=== PATIENT | male | born 1945 | race Caucasian/White ===

== ENCOUNTER → 2017-05-24 | Outpatient (CLI) | payer OTHER | LOC: BMCIMAGING 11:03 | PROVIDERS: ATTEND Orthopaedic Surgery Hand Surgery | DX: M19.031 Primary osteoarthritis, right wrist (principal) ==

== ENCOUNTER 2017-07-06 11:15 | Inpatient (IN) | payer OTHER ==
--- NOTE | 2017-07-06 11:43 | CPEKG ---
Heart Rate: 73 RR Interval: 822 QRSD Interval: 106 QT Interval: 476 QTC Interval: 525 QRS Bob White: 77 T Wave Bob White: 14 EKG Severity - ABNORMAL ECG - EKG Impression: A-FLUTTER W/ PREDOM 4:1 AV BLOCK, A-RATE 294 EKG Impression: LOW VOLTAGE IN FRONTAL LEADS EKG Impression: NONSPECIFIC T ABNORMALITIES, INFERIOR LEADS EKG Impression: PROLONGED QT INTERVAL Electronically Signed By: Chele Hernandez 06-Jul-2017 13:02:17
[2017-07-06 12:32] LABS: % IMMATURE GRANULYOCYTES 0.3 % (0.0-1.1); ABSOLUTE IMMATURE GRANULOCYTES 0.02 10^3/uL (0.00-0.10); ADD DIFF? NO; ADD MORPH? NO; ADD SCAN? NO; ATYPICAL LYMPHOCYTE FLAG 20 (0-99); FRAGMENT RBC FLAG 0 (0-99); HEMATOCRIT 52.5 % (40.0-51.0); HEMOGLOBIN 18.4 g/dL (13.7-17.5); LEFT SHIFT FLG 0 (0-99); LIPEMIA HEMOLYSIS FLAG 90 (0-99); MEAN CELL HEMOGLOBIN 32.6 pg (27.9-34.1); MEAN CELL VOLUME 93.1 fL (81.5-99.8); MEAN PLATELET VOLUME 10.1 fL (8.7-11.7); PLATELET CLUMPS FLAG 20 (0-99); PLATELET COUNT 238 10^3/uL (150-400); RED BLOOD CELL COUNT 5.64 10^6/uL (4.40-6.38); RED CELL DISTRIBUTION WIDTH 12.9 % (11.5-15.2)
[2017-07-06 12:37] LABS: INR 0.94 (0.83-1.16); PROTIME(PATIENT) 12.8 SEC (12.0-15.0)
[2017-07-06 12:39] LABS: ANION GAP 13 mEq/L (8-16); CALCIUM 9.9 mg/dL (8.5-10.4); CARBON DIOXIDE 24 mEq/l (22-31); CHLORIDE 109 mEq/L (97-110); CREATININE 1.3 mg/dL (0.7-1.3); GLOMERULAR FILTRATION RATE 54; GLUCOSE 85 mg/dL (70-100); POTASSIUM 4.3 mEq/L (3.5-5.2); SODIUM 146 mEq/L (134-144)
[2017-07-06 12:50] LABS: TROPONIN I < 0.012 ng/mL (0.000-0.034)
[2017-07-06] MEDS ORDERED: NS 1,000 ML IV ONE (13:02)
--- NOTE | 2017-07-06 13:07 | EDPHY ---
H & P Stated Complaint: chest tightness for a few months intermittent nausea Time Seen by Provider: 07/06/17 12:53 HPI/ROS: CHIEF COMPLAINT: Chest pain with exertion HISTORY OF PRESENT ILLNESS: Patient is a 71-year-old man with a history only of hypothyroidism and high blood pressure who comes to the emergency department complaining of chest tightness and nausea symptoms when he exerts himself. He specially notices these when he is cross country skiing. He states that he did not notice than during the summer when he was chopping and holding would but has over the last month. He does not notice the rest are at home. He denies shortness of breath. He denies recent illness. No vomiting. No diarrhea. No fever. No trauma. He states that he has occasional palpitations when he is trying to fall asleep. REVIEW OF SYSTEMS: Constitutional: denies: chills, fever, recent illness, recent injury EENTM: denies: blurred vision, double vision, nose congestion Respiratory: denies: cough, shortness of breath Cardiac: See HPI Gastrointestinal/Abdominal: See HPI Genitourinary: denies: dysuria, frequency, hematuria, pain Musculoskeletal: denies: joint pain, muscle pain Skin: denies: lesions, rash, jaundice, bruising Neurological: denies: headache, numbness, paresthesia, tingling, dizziness, weakness Hematologic/Lymphatic: denies: blood clots, easy bleeding, easy bruising Immunologic/allergic: denies: HIV/AIDS, transplant EXAM: GENERAL: Well-appearing, well-nourished and in no acute distress. HEAD: Atraumatic, normocephalic. EYES: Pupils equal round and reactive to light, extraocular movements intact, sclera anicteric, conjunctiva are normal. ENT: TMs normal, nares patent, oropharynx clear without exudates. Moist mucous membranes. NECK: Normal range of motion, supple without lymphadenopathy or JVD. LUNGS: Breath sounds clear to auscultation bilaterally and equal. No wheezes rales or rhonchi. HEART: Occasionally irregular rhythm without murmurs, rubs or gallops. ABDOMEN: Soft, nontender, normoactive bowel sounds. No guarding, no rebound. No masses appreciated. BACK: No CVA tenderness, no spinal tenderness, step-offs or deformities EXTREMITIES: Normal range of motion, no pitting or edema. No clubbing or cyanosis. NEUROLOGICAL: Cranial nerves II through XII grossly intact. Normal speech, normal gait. 5/5 strength, normal movement in all extremities, normal sensation PSYCH: Normal mood, normal affect. SKIN: Warm, dry, normal turgor, no visible rashes or lesions. Source: Patient Exam Limitations: No limitations - Personal History Current Tetanus/Diphtheria Vaccine: Unsure - Medical/Surgical History Hx Asthma: No Hx Chronic Respiratory Disease: No Hx Diabetes: No Hx Cardiac Disease: No Hx Renal Disease: No Hx Cirrhosis: No Hx Alcoholism: No Hx HIV/AIDS: No Hx Splenectomy or Spleen Trauma: No Other PMH: denies - Family History Significant Family History: No pertinent family hx - Social History Smoking Status: Never smoked Alcohol Use: Sober Drug Use: None Constitutional: Initial Vital Signs Temperature (C) 36.6 C 07/06/17 11:24 Heart Rate 113 H 07/06/17 11:24 Respiratory Rate 20 07/06/17 11:24 Blood Pressure 118/84 H 07/06/17 11:24 O2 Sat (%) 96 07/06/17 11:24 O2 Delivery Mode Room Air Allergies/Adverse Reactions: No Known Allergies Allergy (Unverified 07/06/17 11:24) Home Medications: Medication Instructions Recorded Aspirin [Aspirin 81mg (*)] 81 mg PO DAILY18 07/06/17 Levothyroxine [Synthroid 100 mcg 100 mcg PO DAILY06 07/06/17 (*)] Multivitamins [Multivitamin (*)] 1 each PO DAILY 07/06/17 Polyvinyl Alcohol [Artificial 1 drop OP DAILY PRN 07/06/17 Tears] Simvastatin [Zocor] 40 mg PO DAILY18 07/06/17 Medical Decision Making - Diagnostics EKG Interpretation: An EKG obtained and was read and documented in trace view. Please see trace view for full reading and report. Atrial flutter with 4:1 block Imaging Results: Imaging Impressions Chest X-Ray 07/06/17 13:03 Impression: 1. Airways disease/emphysema. 2. No pneumonia. 3. Suspect chronic pulmonary arterial hypertension. ED Course/Re-evaluation: The patient has atrial flutter with a variable block. He will need echo likely prior to cardioversion versus ablation. He will need further evaluation because he is symptomatic. I discussed the case with the hospital service agreed to admit. Differential Diagnosis: Partial list of the Differential diagnosis considered include but were not limited to; atrial fibrillation, atrial flutter, and although unlikely based on the history and physical exam, I also considered acute coronary disease, PE, infection. - Data Points Laboratory Results: Laboratory Results 07/06/17 11:37 07/06/17 11:37 07/06/17 07/06/17 07/06/17 11:37 11:37 11:37 WBC RBC Hgb Hct MCV MCH MCHC RDW Plt Count MPV Neut % (Auto) Lymph % (Auto) [place] % (Auto) Eos % (Auto) Baso % (Auto) Nucleat RBC Rel Count Absolute Neuts (auto) Absolute Lymphs (auto) Absolute Monos (auto) Absolute Eos (auto) Absolute Basos (auto) Absolute Nucleated RBC Immature Gran % Immature Gran # PT Cancelled INR Cancelled APTT 25.9 SEC SEC (23.0-38.0) Turbidity Cancelled Sodium Cancelled Potassium Cancelled Chloride Cancelled Carbon Dioxide Cancelled Anion Gap Cancelled BUN Cancelled Creatinine Cancelled Estimated GFR Cancelled Glucose Cancelled Calcium Cancelled Total Bilirubin 1.0 mg/dL mg/dL (0.1-1.4) Conjugated Bilirubin 0.4 mg/dL mg/dL (0.0-0.5) Unconjugated Bilirubin 0.6 mg/dL mg/dL (0.0-1.1) AST 40 IU/L IU/L (17-59) ALT 49 IU/L IU/L (21-72) Alkaline Phosphatase 54 IU/L IU/L (38-126) Troponin I Cancelled NT-Pro-B Natriuret Pep 1040 pg/mL H pg/mL (0-125) Total Protein 7.6 g/dL g/dL (6.3-8.2) Albumin 4.4 g/dL g/dL (3.5-5.0) TSH 1.500 uIU/mL uIU/mL (0.465-4.680) Free T4 1.55 ng/dL ng/dL (0.59-2.19) Specimen Hemolysis Cancelled 07/06/17 07/06/17 07/06/17 11:37 11:37 11:37 WBC 6.39 10^3/uL 10^3/uL (3.80-9.50) RBC 5.64 10^6/uL 10^6/uL (4.40-6.38) Hgb 18.4 g/dL H g/dL (13.7-17.5) Hct 52.5 % H % (40.0-51.0) MCV 93.1 fL fL (81.5-99.8) MCH 32.6 pg pg (27.9-34.1) MCHC 35.0 g/dL g/dL (32.4-36.7) RDW 12.9 % % (11.5-15.2) Plt Count 238 10^3/uL 10^3/uL (150-400) MPV 10.1 fL fL (8.7-11.7) Neut % (Auto) 52.1 % % (39.3-74.2) Lymph % (Auto) 32.7 % % (15.0-45.0) [place] % (Auto) 11.7 % % (4.5-13.0) Eos % (Auto) 2.3 % % (0.6-7.6) Baso % (Auto) 0.9 % % (0.3-1.7) Nucleat RBC Rel Count 0.0 % % (0.0-0.2) Absolute Neuts (auto) 3.32 10^3/uL 10^3/uL (1.70-6.50) Absolute Lymphs (auto) 2.09 10^3/uL 10^3/uL (1.00-3.00) Absolute Monos (auto) 0.75 10^3/uL 10^3/uL (0.30-0.80) Absolute Eos (auto) 0.15 10^3/uL 10^3/uL (0.03-0.40) Absolute Basos (auto) 0.06 10^3/uL 10^3/uL (0.02-0.10) Absolute Nucleated RBC 0.00 10^3/uL 10^3/uL (0-0.01) Immature Gran % 0.3 % % (0.0-1.1) Immature Gran # 0.02 10^3/uL 10^3/uL (0.00-0.10) PT 12.8 SEC SEC (12.0-15.0) INR 0.94 (0.83-1.16) APTT Turbidity Sodium 146 mEq/L H mEq/L (134-144) Potassium 4.3 mEq/L mEq/L (3.5-5.2) Chloride 109 mEq/L mEq/L (97-110) Carbon Dioxide 24 mEq/l mEq/l (22-31) Anion Gap 13 mEq/L mEq/L (8-16) BUN 29 mg/dL H mg/dL (7-23) Creatinine 1.3 mg/dL mg/dL (0.7-1.3) Estimated GFR 54 Glucose 85 mg/dL mg/dL (70-100) Calcium 9.9 mg/dL mg/dL (8.5-10.4) Total Bilirubin Conjugated Bilirubin Unconjugated Bilirubin AST ALT Alkaline Phosphatase Troponin I < 0.012 ng/mL ng/mL (0.000-0.034) NT-Pro-B Natriuret Pep Total Protein Albumin TSH Free T4 Specimen Hemolysis Medications Given: Discontinued Medications Sodium Chloride (Ns) 1,000 mls @ 0 mls/hr IV EDNOW ONE; Wide Open PRN Reason: Protocol Stop: 07/06/17 13:03 Last Admin: 07/06/17 13:24 Dose: 1,000 mls Departure - Departure Disposition: [facility] Inpatient Acute Clinical Impression: Atrial flutter Qualifiers: Atrial flutter type: atypical Qualified Code(s): I48.4 - Atypical atrial flutter Condition: Fair
[2017-07-06 13:28] LABS: ALBUMIN 4.4 g/dL (3.5-5.0); BILIRUBIN-CONJUGATED 0.4 mg/dL (0.0-0.5); BILIRUBIN-UNCONJUGATED 0.6 mg/dL (0.0-1.1); TOTAL PROTEIN 7.6 g/dL (6.3-8.2)
[2017-07-06] MEDS ORDERED: ACETAMINOPHEN 325 MG TAB PO PRN (13:44)
[2017-07-06] MEDS ORDERED: ONDANSETRON DISINTEGRATING 4 MG TAB PO PRN (13:44)
[2017-07-06] MEDS ORDERED: ONDANSETRON 4 MG/2 ML VIAL IVP PRN (13:44)
--- NOTE | 2017-07-06 15:48 | GHP ---
[f rep st] HISTORY AND PHYSICAL DATE OF ADMISSION: 07/06/2017 CHIEF COMPLAINT: Racing heart, shortness of breath. HISTORY OF PRESENT ILLNESS: A 71-year-old male with past medical history of hypothyroidism, hyperlipidemia presenting with persistent racing heart rate and shortness of breath. He really noticed symptoms in April after he started skiing. He went to [employer] and felt very nauseated and winded at the end of the run. Had to lean over to catch his breath. He did a couple more runs and had similar symptoms. He now feels racing heart daily, even at rest. Especially, notices when un bed laying on his side. Will occasionally have chest tightness, but no overt pain and this is not associated with diaphoresis, radiation or numbness. Denies any dizziness or lightheadedness. No PND, orthopnea, or lower extremity edema. He had a negative exercise stress test probably 5-6 years ago by his primary care physician. No recent travel. He drinks 2 to 3 beers and couple cocktails nightly. No tobacco or drugs. REVIEW OF SYSTEMS: I completed a 10-point review of systems, negative except as noted in HPI. PAST MEDICAL HISTORY: Hypothyroid, hyperlipidemia. SURGERIES: None. FAMILY HISTORY: Maternal grandpa with an [place]. Paternal grandpa with prostate cancer. Maternal side lots of cancers. 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 Drinks 2 to 3 beers plus several cocktails daily. No tobacco. Quit smoking marijuana 15 years ago. ALLERGIES: No known drug allergies. PHYSICAL EXAMINATION: VITAL SIGNS: Temperature 37.0, blood pressure 139/81, heart rate 85 to 113, respirations 16, 95% on room air. GENERAL: Well- appearing, sitting up in bed HEENT: PERRLA. EOMI. Oropharynx clear. Garcia face, britany cheeks and nose. CARDIOVASCULAR: Heart rate is regular with an occasional extra beat. No murmurs, gallops, or rubs. No JVD or lower extremity edema. LUNGS: Clear. No crackles or wheezing. GI: Soft, nontender , nondistended. Positive bowel sounds. : No Peters. MUSCULOSKELETAL: 5/5 upper lower extremity strength. NEURO: 2 through 12 intact. PSYCH: Alert and oriented x3. LABORATORY DATA: WBC 6, hemoglobin 18, hematocrit 52, platelets 238. PTT is 25. Sodium 146, potassium 4.3, chloride 109, carbon dioxide 24, BUN 29, anion gap 13, creatinine is 1.3 up from 1.2. LFTs within normal. Troponin less than 0.012. BNP is pending. TSH 1.5, free T4 1.55. Chest x-ray personally reviewed by me. No effusion or edema. EKG is personally reviewed by me, atrial flutter, 4:[address] depression in leads aVL and 1. ASSESSMENT/PLAN: 1. Atrial flutter: likely source of symptoms. No ischemia on EKG, negative trop. TSH normal. No infectious symptoms. Alcohol may be playing a role. Monitor in the PCU on telemetry, echo pending. CHADS-VASc score is 1. I spoke with Dr. Peter who will see patient in the morning. Start BB, full-dose Lovenox (CrCl is okay), NPO for possible cardioversion. 2. Hypothyroidism. Resume Synthroid. 3. Hyperlipidemia. Simvastatin. 4. Mild TIESHA: mildly dry on exam. IVFs in ED. Repeat in morning. 5. Etoh use: drinks daily, counseled on cessation. No signs of w/d now. 6. Diet. Regular. 7. DVT prophylaxis. Lovenox. Disp: Patient warrants observation and admission given acute shortness of breath, atrial flutter requiring rate control, telemetry and further cardiac evaluation. /[id number]/MODL MTDD
[2017-07-06] MEDS ORDERED: NON-FORMULARY NEW DRUG (Polyvinyl Alcohol [Artificial Tears] 1 DROP) OP PRN (16:08)
[2017-07-06] MEDS ORDERED: TEARS/DEXTRAN 70/HYPROMELLOSE 15 ML OPHT.BTL EACHEYE PRN (16:10)
[2017-07-06] MEDS: ENOXAPARIN 80 MG/0.8 ML SYR SC SCH ×2 (16:37→20:52)
[2017-07-06] MEDS: METOPROLOL TARTRATE 50 MG TAB PO SCH ×2 (16:37→20:51)
[2017-07-06] MEDS ORDERED: ATORVASTATIN CALCIUM 20 MG TAB PO SCH (18:00)
[2017-07-06] MEDS ORDERED: NON-FORMULARY NEW DRUG (Simvastatin [Zocor] 40 MG) PO SCH (18:00)
[2017-07-07 04:25] LABS: ANION GAP 10 mEq/L (8-16); CALCIUM 8.8 mg/dL (8.5-10.4); CARBON DIOXIDE 24 mEq/l (22-31); CHLORIDE 110 mEq/L (97-110); CREATININE 1.2 mg/dL (0.7-1.3); GLOMERULAR FILTRATION RATE 59; GLUCOSE 89 mg/dL (70-100); POTASSIUM 4.5 mEq/L (3.5-5.2); SODIUM 144 mEq/L (134-144)
[2017-07-07] MEDS: LEVOTHYROXINE 100 MCG TAB PO SCH (05:45)
[2017-07-07] MEDS ORDERED: ATROPINE SULFATE 1 MG/10 ML SYR IVP ONE (08:55)
[2017-07-07] MEDS ORDERED: fentaNYL 100 MCG/2 ML INJ IVP ONE (08:55)
[2017-07-07] MEDS ORDERED: MIDAZOLAM 2 MG/2 ML VIAL IVP ONE (08:55)
[2017-07-07] MEDS ORDERED: BENZOCAINE UNIT DOSE SPRAY HURRICAINE MM ONE (08:55)
[2017-07-07] MEDS ORDERED: NS 500 ML IV ONE (08:55)
[2017-07-07] MEDS ORDERED: METOPROLOL TARTRATE 50 MG TAB PO SCH (09:00)
[2017-07-07] MEDS ORDERED: ENOXAPARIN 40 MG/0.4 ML SYR SC SCH (09:00)
[2017-07-07] MEDS: METOPROLOL TARTRATE 25 MG TAB PO SCH ×2 (09:41→21:39)
[2017-07-07] MEDS: ENOXAPARIN 80 MG/0.8 ML SYR SC SCH ×2 (09:41→21:30)
[2017-07-07] MEDS: MULTIVITAMINS 1 EACH TAB PO SCH (09:42)
--- NOTE | 2017-07-07 10:53 | CPEKG ---
Heart Rate: 94 RR Interval: 638 QRSD Interval: 104 QT Interval: 354 QTC Interval: 443 QRS Gregory: 94 T Wave Gregory: 57 EKG Severity - ABNORMAL ECG - EKG Impression: A-FLUTTER W/ VARIED AV BLOCK, A-RATE 283 EKG Impression: RIGHT AXIS DEVIATION EKG Impression: LOW VOLTAGE IN FRONTAL LEADS EKG Impression: BORDERLINE T ABNORMALITIES, ANT-LAT LEADS Electronically Signed By: Gregory Spangler 07-Jul-2017 20:26:45
[2017-07-07] MEDS ORDERED: ATROPINE SULFATE 1 MG/10 ML SYR ONE (11:55)
--- NOTE | 2017-07-07 12:36 | PDANEPAE ---
ANE History of Present Illness here for BARTOLOME/CV for AF ANE Past Medical History - Cardiovascular History Hx Hypertension: No Hx Arrhythmias: Yes Hx Chest Pain: No Hx Coronary Artery / Peripheral Vascular Disease: No Hx CHF / Valvular Disease: Yes Hx Palpitations: No - Pulmonary History Hx COPD: No Hx Asthma/Reactive Airway Disease: No Hx Recent Upper Respiratory Infection: No Hx Oxygen in Use at Home: No Hx Sleep Apnea: No - Endocrine History Hx Diabetes: No - Renal History Hx Renal Disorders: Yes - Liver History Hx Hepatic Disorders: No - Neurological & Psychiatric Hx Hx Neurological and Psychiatric Disorders: No - Chronic Pain History Chronic Pain: No ANE Review of Systems Review of systems is: negative Review of Systems: - Exercise capacity Exercise capacity: >=4 METS ANE Patient History - Allergies Allergies/Adverse Reactions: No Known Allergies Allergy (Unverified 07/06/17 11:24) - Home Medications Home Medications: Aspirin [Aspirin 81mg (*)] 81 mg PO DAILY18 07/06/17 [Last Taken 07/05/17 18:00] Levothyroxine [Synthroid 100 mcg (*)] 100 mcg PO DAILY06 07/06/17 [Last Taken 08:00] Multivitamins [Multivitamin (*)] 1 each PO DAILY 07/06/17 [Last Taken 07/02/17] Polyvinyl Alcohol [Artificial Tears] 1 drop OP DAILY PRN 07/06/17 [Last Taken ] Simvastatin [Zocor] 40 mg PO DAILY18 07/06/17 [Last Taken 07/05/17 18:00] - NPO status NPO Status: no food or drink >8 hours - Smoking Hx Smoking Status: Never smoked - Alcohol Use Alcohol Use: Heavy ANE Labs/Vital Signs - Labs Result Diagrams: 07/06/17 11:37 07/07/17 03:42 - Vital Signs Blood Pressure: 108/76 Heart Rate: 71 Respiratory Rate: 14 O2 Sat (%): 92 Height: 187.96 cm Weight: 85.1 kg ANE Physical Exam - Airway Neck exam: FROM Mallampati Score: Class 1 Mouth exam: normal dental/mouth exam - Pulmonary Pulmonary: no respiratory distress - Cardiovascular Cardiovascular: irregularly irregular - ASA Status ASA Status: II ANE Anesthesia Plan Anesthesia Plan: GA with mask
[2017-07-07] MEDS ORDERED: PROPOFOL 200 MG/20 ML VIAL ONE ×2 (12:40→12:41)
--- NOTE | 2017-07-07 13:04 | POSTANESTH ---
Post Anesthetic Evaluation Cardiovascular Status: Normal, Stable Respiratory Status: Normal, Stable Level of Consciousness/Mental Status: Can Participate in Eval Pain Control: Adequate, Prn Tx Ordered Nausea/Vomiting Control: Adequate, Prn Tx Ordered Complications Possibly Related to Anesthesia: None Noted
--- NOTE | 2017-07-07 13:04 | CPEKG ---
Heart Rate: 51 RR Interval: 1176 P-R Interval: 240 QRSD Interval: 100 QT Interval: 492 QTC Interval: 454 P Hollywood: 71 QRS Hollywood: 66 T Wave Hollywood: 40 EKG Severity - ABNORMAL ECG - EKG Impression: SINUS RHYTHM EKG Impression: FIRST DEGREE AV BLOCK EKG Impression: LOW VOLTAGE IN FRONTAL LEADS Electronically Signed By: Gregory Spangler 07-Jul-2017 20:26:40
--- NOTE | 2017-07-07 14:44 | ECHO ---
[email or web address] [address] [address] Main: [phone] Fax: Transthoracic Echocardiogram Name: BRIDGET BECK MR#: [id number] Study Date: 07/06/2017 Study Time: 02:55 PM Date of : 1945 Age: 71 year(s) Height: 188 cm (74 in.) Weight: 83.92 kg (185 lb.) BSA: 2.1 m2 Gender: Male Examination: Echo Indication: Atrial Flutter Image Quality: Contrast: Requested by: Porsche Blue BP: 139 mmHg/61 mmHg Heart Rate: Rhythm: Indication: Atrial Flutter Procedure Staff Crm Campaign Manager: Kellen Stallings Physician: Denis Peter Requesting Provider: Conclusions: Normal size left ventricle. The ejection fraction is estimated to be 45-50 %. Basal/mid inferoseptal wall hypokinetic . Normal size right ventricle. Trivial mitral valve regurgitation. The aortic valve is tri-leaflet. There is no aortic valve regurgitation. Trivial tricuspid valve regurgitation. Measurements: Chambers Valvular Assessment AV/MV Valvular Assessment TV/PV Normal Normal Normal Name Value Range Name Value Range Name Value Range Ao Shirley (MM): 3.8 cm (2.2 cm-3.7 AV Vmax: 0.86 m/s (1 m/s-1.7 TR Vmax: 2.17 mm/s ( - ) cm) m/s) TR PGmax: 19 mmHg ( - ) IVSd (2D): 1.0 cm (0.6 cm-1.1 AV maxP mmHg ( - ) syst. PAP: 24 mmHg ( - ) cm) MV E Vmax: 0.59 m/s ( - ) LVDd (2D): 5.4 cm (4.2 cm-5.9 MV A Vmax: 0.41 m/s ( - ) cm) MV E/A: 1.44 ( - ) LVDs (2D): 4.3 cm (2.1 cm-4 cm) LVPWd (2D): 0.6 cm (0.6 cm-1 cm) LVEF (MOD4): 48 % (>=55 %) EF Range: 45-50 % Continued Measurements: Chambers Valvular Assessment AV/MV Valvular Assessment TV/PV Name Value Name Value Name Value Patient: BRIDGET BECK Study Date: 07/06/2017 Page 1 of 2 02:55 PM LADs: 4.5 cm MV E/E' Septal: 8.60 CVP (est.): 5 mmHg LADs Lon.5 cm MV E/E' Lateral: 12.10 LA Area: 23.2 cm2 Additional Vessels Name Value Ao Ascendin.4 cm Findings: Left Ventricle: Normal size left ventricle. The ejection fraction is estimated to be 45-50 %. Regional wall motion abnormality noted. Basal/mid inferoseptal wall hypokinetic . Right Ventricle: Normal size right ventricle. Left Atrium: The left atrium is mildly dilated. Right Atrium: The right atrium is mildly dilated. Mitral Valve: The mitral valve is normal in appearance and function. Trivial mitral valve regurgitation. Aortic Valve: The aortic valve is normal in appearance and function. The aortic valve is tri-leaflet. There is no aortic valve regurgitation. Tricuspid Valve: The tricuspid valve is normal in appearance and function. Trivial tricuspid valve regurgitation. Pulmonic Valve: The pulmonic valve is normal in appearance and function. Mild pulmonic valve regurgitation is noted. Aorta: The aorta is normal. Pericardium: Trivial anterior pericardial effusion. (No Signature Object) Patient: BRIDGET BECK Study Date: 07/06/2017 Page 2 of 2 02:55 PM [id number]
[2017-07-07] MEDS ORDERED: REGADENOSON 0.4 MG/5 ML SYR IVP ONE (15:14)
--- NOTE | 2017-07-07 15:24 | HOSPPROG ---
Hospitalist Progress Note Assessment/Plan: #Atrial flutter: s/p successful cardioversion today. 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 No e/o overload #CAD: old infarcts on stress. Cath in AM. Check lipids, A1c. Increase statin to 40mg, ASA. Holding BB with bradycardia #Bradycardia: after procedure. 40-60, no symptoms. Hold BB, telemetry #Etoh abuse: counseled on cessation #HLD: statin #Hypothyroidism: Synthroid #DVT ppx: Lovenox #Dis: may DC today if stress okay Critical care time 50 min: bedside with patient, counseling patient on flutter, CAD, cath and discussing treatment plan with Dr. Peter Subjective: no chest pain Objective: Vital Signs Temp Pulse Resp BP Pulse Ox 36.4 C 53 L 12 94/52 L 93 07/07/17 14:36 07/07/17 14:36 07/07/17 14:36 07/07/17 14:36 07/07/17 14:36 Laboratory Results 07/07/17 03:42 07/06/17 07/07/17 07/08/17 05:59 05:59 05:59 Intake Total 1740 Balance 1740 PT 12.8 SEC (12.0-15.0) 07/06/17 11:37 INR 0.94 (0.83-1.16) 07/06/17 11:37 - Physical Exam Constitutional: no apparent distress Eyes: PERRL Ears, Nose, Mouth, Throat: moist mucous membranes Cardiovascular: regular rate and rhythym, no murmur, rub, or gallop, No edema Respiratory: no respiratory distress, no rales or rhonchi Gastrointestinal: normoactive bowel sounds Genitourinary: no bladder fullness Skin: warm Musculoskeletal: full muscle strength Neurologic: AAOx3, CN II-XII Intact Psychiatric: interacting appropriately ICD10 Worksheet Patient Problems: Problems Problem Status Onset Atrial flutter Acute
--- NOTE | 2017-07-07 16:45 | CPIP ---
[f rep st] INVASIVE CARDIAC PROCEDURE PROCEDURES PERFORMED: Transesophageal echocardiogram and cardioversion. INDICATION: Atrial flutter. CONSENT: The patient gave informed consent for BARTOLOME and cardioversion. I went over with him the opti ons, which would include ongoing medical therapy without having his procedures and he understands the risk of perforation, infection, possible requirement for surgery with transesophageal echocardiogram , very remote risk of , the risks also of cardioversion including risk of and stroke, and the risk of stroke even in the face of what appears to be a normal transesophageal echocardiogram. Twyla benitez wanted to proceed and proceed today. Again, I gave him all the options available to him, which the re are many. I talked to him about this multiple times before we did the procedure. TRANSESOPHAGEAL ECHOCARDIOGRAM: He tolerated the procedure very well and there was no sign of decrea sed velocity or clot in the left atrium. There was smoke present. CARDIOVERSION: The patient was cardioverted with 200 watt seconds from atrial flutter to normal sinu s rhythm. He needs to follow up with our electrophysiology service and I will give him Dr. Almaraz's number to get ongoing care and followup for his flutter. He will also require full anticoagulation, which he was on at the time since he has come in the hospital, and that was started as soon as he got here with hi s flutter and he is going to need full anticoagulation. I have talked to the hospitalist and he is kizzy rivera to be cared for with Aj. I will follow him in clinic unless his further studies indicate he needs further cardiovascular evalu ation at this time. He is now in normal sinus rhythm. He had absolutely no complications. I have t alked to multiple times since the procedure and he is doing well right this minute. /[id number]/MODL
--- NOTE | 2017-07-07 17:09 | GCON ---
[f rep st] CONSULTATION HISTORY OF PRESENT ILLNESS: The patient has been having forceful heartbeats that he has been paying attention to. The heartbeats have been fast. He does not have near-syncope or syncope. He has been having these fast heartbeats for a long, long time. Over 6 months. He will notice it most often when he is resting, when he lies down to read a book, or when he gets up . He may notice that his heart is going fast. He does not notice any problem while he is working. He notices no problem when he is skiing. What he has noticed as he is skiing and when he is working is that he is more short of breath than he usually is. When he would go down a run. He would maybe get a little nauseated and feel winded and have to stop. Just last year he was able to go down the s baldev runs without any problems. He notices the extra shortness of breath at other times too with any kind of exertion. That is the issue that brought him into the hospital. He also has been having some chest tightness in the center of his chest when he exerts himself. He d oes not have orthopnea, PND, or pleuritic chest pain, fever, chills, cough. No jaw pain, arm pain. No sputum production, hemoptysis. He has no history of asthma. He is a very active gentleman and is confused about what is going on with this. It is a marked difference for him He has cardiac risk factors positive for hyperlipidemia. Cardiac risk factors are negative for hypertension, diabetes mellitus, hyperuricemia, smoking history , and family history of premature coronary disease. Cardiac risk factors are negative for known param nary artery disease. REVIEW OF SYSTEMS: ENDOCRINE: He has a history of hypothyroidism. NEURO: He has not had focal mik rologic problems. No headache, stiff neck, sore throat, dysphagia, or hoarseness. No trauma to the head neck or chest. : No dysuria or frequency. CARDIAC: He has not had a cardiac evaluation for years. ALLERGIES: None. FAMILY HISTORY: He has no family history of premature coronary disease. He has no family history of unexplained sudden at a young age. SOCIAL HISTORY: He was born in [place], [place]. He has 2 brothers and they moved around a lot. His father was in the . He went to high school in [place] and in the last year of his high s chool he was at [employer] in [place] which he enjoyed a great deal. He does not smoke. He does drink a fair amount of alcohol. He is drinking 3-4 cocktails a day and he will have a beer as w ell occasionally. 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 He martins s not use marijuana or any other drugs. He exercises. Over the years, he has been in and out of restaurant and construction work. He has been doing that [employer] work since he went to as an undergraduate. He is a bachelor. Lives with a friend and a broth er and his brother's . They share a house. PHYSICAL EXAMINATION: VITAL SIGNS: Blood pressure is 125/75. Respiratory rate is 15. Heart rate i s 110. He is afebrile. His O2 saturation is normal. HEENT: Pupils equal and reactive. Mucous membranes and mouth moist. NECK: Supple. CARDIOVASCULAR: S1, S2. Soft systolic murmur lef t sternal border. No diastolic murmur. No S3, S4. No rubs. His pulse is irregular. PULMONARY: R honchi. No rales, wheezing, or dullness. CVA: No tenderness. ABDOMEN: Soft, nontender, without m asses. EXTREMITIES: No edema, inflammation, or ulceration. NEUROLOGIC: Grossly normal. PSYCHIATR IC: No obvious anxiety or depression. LABORATORY DATA: The patient is in atrial flutter. Sodium 146, potassium 4.3, chloride 109, CO2 of 24, BUN 29, creatinine 1.3. He has an echocardiographic study that does look like it showed some inferior hypokinesis. He also h as an ejection fraction estimated at 45% to 50%. No pulmonary hypertension detected on that study. Chest x-ray showed airway disease and emphysema. No pneumonia. Suspect chronic pulmonary arterial h ypertension. ASSESSMENT AND PLAN: 1. Palpitations. 2. Atrial flutter. 3. Dyspnea on exertion. 4. Chest tightness. 5. He has longstanding hyperlipidemia that is being treated by his primary care doctor and he will c ontinue to watch carefully. He is certainly at risk for coronary artery disease. He has agreed to go ahead with a BARTOLOME and cardio version and he is fully anticoagulated. He is going to have that done today. He understands the ris k of stroke, which is real, when you are doing a cardioversion, even when the BARTOLOME is normal or appear s to be normal. He is willing to proceed and wants to get that done. He needs to have a nuclear str ess test done as an imaging study to see whether or not he has coronary artery disease. He clearly has a tightness in his chest with certain exertions. It goes away with rest. Certainly, it could be angina. He has an abnormal echocardiogram that shows possible wall motion, so we have to look for coronary disease. I offered to do coronary angiography on him and I recommended that as th e way to go. He is getting chest tightness with exertion and goes away with rest. It comes on with stress, goes away with rest. I think, given his age and his abnormal echo we could easily proceed to coronary angiography first an d I think it would be safer in case he has a precipitously dangerous cardiac condition. I think that stressing him could put him into jeopardy. However, he is not interested in this approach. He real ly wants a noninvasive approach and I will do it the way he would like to do it, which is we will do the noninvasive approach. He understands the choices and he understands the risks that go along with the stress test like this. Over time, he will be watched carefully and we will see how he progresses. Thank you very much for asking us to see this complex gentleman. I have talked to the hospitalist out him. /[id number]/MODL
[2017-07-07] MEDS: ATORVASTATIN CALCIUM 20 MG TAB PO SCH (17:10)
--- NOTE | 2017-07-07 17:47 | PDMN ---
Medical Necessity Medical necessity: C/M review: est. > 2 MN LOS for eval and TX of acute atrial flutter, bradycardia status post 07/07/2017 cardioversion requiring ongoing cardiac monitoring, hold oral beta rigoberto, comorbid cardiomyopathy, CAD, alcohol abuse, hyperlipidemia, hypothyroidism per 07/07/2017 Hospitalist progress note.
[2017-07-07 17:48] LABS: HEMOGLOBIN A1C 5.5 % (4.0-6.0)
[2017-07-08 04:29] LABS: ANION GAP 11 mEq/L (8-16); CALCIUM 8.7 mg/dL (8.5-10.4); CARBON DIOXIDE 23 mEq/l (22-31); CHLORIDE 110 mEq/L (97-110); CHOLESTEROL 148 mg/dL (140-220); CREATININE 1.2 mg/dL (0.7-1.3); GLOMERULAR FILTRATION RATE 59; GLUCOSE 83 mg/dL (70-100); HIGH DENSITY LIPOPROTEIN 40 mg/dL (40-65); LDL/HDL RATIO 2.25 RATIO (1.00-3.64); LOW DENSITY LIPOPROTEIN 90 mg/dL (80-100); NON-HIGH DENSITY LIPOPROTEIN 108 mg/dL (90-129); POTASSIUM 4.6 mEq/L (3.5-5.2); SODIUM 144 mEq/L (134-144); TRIGLYCERIDE 93 mg/dL (40-150); VERY LOW DENSITY LIPOPROTEINS 18 mg/dL (8-25)
[2017-07-08] MEDS: LEVOTHYROXINE 100 MCG TAB PO SCH (06:06)
--- NOTE | 2017-07-08 09:13 | CPR ---
[f rep st] NONINVASIVE CARDIAC PROCEDURE REPORT DATE OF PROCEDURE: 07/07/2017 PROCEDURE: Lexiscan nuclear stress test. REASON FOR TEST: He was in atrial flutter, had a cardioversion and had chest pain on admission. RESTING: Resting EKG shows a sinus rhythm with a first-degree AV block. No ischemic changes noted. Resting heart rate on EKG 62, resting blood pressure 110/68, oxygen saturation 95%. He is asymptoma tic. STRESS PORTION: Lexiscan was injected rapidly, followed by saline flush. Cardiolite was then inject ed, followed by saline flush. He did feel some stomach upset after injection and flushing. Peak blo od pressure 112/60, peak heart rate 87. Oxygen saturation 95%. No EKG changes with administration o f Lexiscan. RECOVERY: He spontaneously recovered. Caffeine was given and his symptoms subsided. Recovery blood pressure 110/60, recovery heart rate 75, oxygen saturation 96%. EKG remained stable. At this time, he currently is stable for nuclear imaging. /[id number]/MODL
[2017-07-08] MEDS ORDERED: LIDOCAINE 1% 300 MG/30 ML SDV ONE (11:34)
[2017-07-08] MEDS ORDERED: fentaNYL 100 MCG/2 ML INJ ONE (11:34)
[2017-07-08] MEDS ORDERED: MIDAZOLAM 2 MG/2 ML VIAL ONE (11:34)
[2017-07-08] MEDS ORDERED: IOPAMIDOL (ISOVUE-370) 150 ML BTL IV ONE (11:35)
--- NOTE | 2017-07-08 12:00 | PDPROPOC ---
Sedation Plan of Care ASA Classification: ASA 1 Planned drugs: fentanyl, midazolam Mallampati Score: Class 2 Mallampati Reference Image: Patient passed 3-3-2 rule?: Yes
[2017-07-08] MEDS: METOPROLOL TARTRATE 25 MG TAB PO SCH (12:14)
[2017-07-08] MEDS: MULTIVITAMINS 1 EACH TAB PO SCH (12:16)
[2017-07-08] MEDS ORDERED: ONDANSETRON 4 MG/2 ML VIAL IVP PRN (13:07)
[2017-07-08] MEDS ORDERED: OXYCODONE/APAP 5/325 TAB PO PRN (13:07)
[2017-07-08] MEDS ORDERED: ATROPINE SULFATE 1 MG/10 ML SYR IVP PRN (13:07)
[2017-07-08] MEDS ORDERED: HYDROCODONE/APAP 5/325 TAB PO PRN (13:07)
[2017-07-08] MEDS ORDERED: NITROGLYCERIN 0.4 MG BTL SL PRN (13:07)
[2017-07-08] MEDS ORDERED: NS 1,000 ML IV SCH (13:30)
--- NOTE | 2017-07-08 13:53 | CPIP ---
[f rep st] INVASIVE CARDIAC PROCEDURE INDICATIONS FOR PROCEDURE: The patient has chest tightness with exertion, marked new shortness of br eath with minimal exertion and he is also having a history of many years of hyperlipidemia. He has a nuclear stress test which shows multiple areas of infarction. He has a decreased ejection fraction. He does not have symptomatic heart failure at rest, but with e xertion he has shortness of breath. It is not clear if some of that shortness of breath is ischemic, but shortness of breath is cardiomyo pathic and we will proceed with coronary angiography. He understands the risks and the options and wanted to proceed. FINDINGS: Angiography: Left main coronary artery normal. Circumflex coronary artery normal. Right coronary artery normal. Right coronary dominant. Left ventriculogram: Left ventricle was enlarged. Decreased LV global systolic function with ejection fraction of 35% range. Left ventricular end-diastolic pressure 14 mmHg. Left and left heart catheterization: LVEDP was 16. There is no aortic stenosis. COMPLICATIONS: None CONDITION AT END OF STUDY: Excellent. CONCLUSION: The patient has a dilated cardiomyopathy. It clearly could be related to alcohol consum ption, which he does on a regular basis in a significant amount and I have already talked to him abou t trying to curtail that and now we will work very hard on getting him not drink at all for 6 months to see if that improves and takes care of his problem. He will be started on a different beta rigoberto and an ZAY inhibitor today. He will get IV fluids post catheterization. We may add a diuretic on Monday. His heart rate at times can be low and his blood pressure can be low so we are going to be careful ab out titrating his medications. He will be followed long-term to see if he needs an ICD. He is having first-degree heart block as well as second-degree heart block, most of which looks Like Wenckebach, but there are times when it does not look like the OK interval is prolonging before the dropped beat, so we are going to monitor this while he is in the hospital. We will review his ca se with the electrophysiology service on Monday. We will watch carefully to see if he gets advanced block at this point. His prognosis is guarded, All his questions have been answered. Complications none. The results discussed with the hospitalist service. /[id number]/MODL
--- NOTE | 2017-07-08 15:14 | HOSPPROG ---
Hospitalist Progress Note Assessment/Plan: #Atrial flutter: s/p successful cardioversion: 07/07. Lovenox hrlei, Rheaqura at DC. Coreg #Cardiomyopathy: confirmed on cath today with EF 35%. Start Coreg/Vasotech today. Lasix possibly tomorrow. No e/o overload -suspect Etoh as etiology. I have had several discussions with him on cessation. #CAD: old infarcts on stress. Clean coronaries on cath. Statin, ASA, Coreg. Lipids and A1c at goal #First degree block/Wenckebach: no sxs. Cont telemetry. Dr. Peter will have EP evaluate #Etoh abuse: counseled on cessation #HLD: statin #Hypothyroidism: Synthroid #DVT ppx: Lovenox #Disp: warrants inpatient admission with CDM, heart block. Requires telemetry, med titration and EP evaluation Subjective: no dizziness or lightheadedness Objective: Vital Signs Temp Pulse Resp BP Pulse Ox 36.5 C 48 L 18 95/56 L 95 07/08/17 12:00 07/08/17 12:14 07/08/17 12:00 07/08/17 12:14 07/08/17 12:00 Laboratory Results 07/08/17 03:24 07/07/17 07/08/17 07/09/17 05:59 05:59 05:59 Intake Total 650 Balance 650 PT 12.8 SEC (12.0-15.0) 07/06/17 11:37 INR 0.94 (0.83-1.16) 07/06/17 11:37 - Physical Exam Constitutional: no apparent distress Eyes: PERRL Ears, Nose, Mouth, Throat: moist mucous membranes Cardiovascular: bradycardia, No edema Respiratory: no respiratory distress, No no rales or rhonchi Gastrointestinal: normoactive bowel sounds, soft, non-tender abdomen Genitourinary: no bladder fullness Skin: warm Musculoskeletal: full muscle strength Neurologic: CN II-XII Intact ICD10 Worksheet Patient Problems: Problems Problem Status Onset Atrial flutter Acute
[2017-07-08] MEDS: CARVEDILOL 3.125 MG TAB PO SCH (18:52)
[2017-07-08] MEDS: ATORVASTATIN CALCIUM 20 MG TAB PO SCH (18:55)
[2017-07-08] MEDS: ENOXAPARIN 80 MG/0.8 ML SYR SC SCH (21:58)
[2017-07-08] MEDS: ENALAPRIL MALEATE 2.5 MG TAB PO SCH (22:54)
[2017-07-09 04:22] LABS: ANION GAP 7 mEq/L (8-16); CALCIUM 8.8 mg/dL (8.5-10.4); CARBON DIOXIDE 26 mEq/l (22-31); CHLORIDE 108 mEq/L (97-110); CREATININE 1.2 mg/dL (0.7-1.3); GLOMERULAR FILTRATION RATE 59; GLUCOSE 85 mg/dL (70-100); POTASSIUM 4.5 mEq/L (3.5-5.2); SODIUM 141 mEq/L (134-144)
[2017-07-09] MEDS: LEVOTHYROXINE 100 MCG TAB PO SCH (07:00)
[2017-07-09] MEDS: MULTIVITAMINS 1 EACH TAB PO SCH (08:08)
[2017-07-09] MEDS: CARVEDILOL 3.125 MG TAB PO SCH ×2 (08:08→18:30)
[2017-07-09] MEDS: ENOXAPARIN 80 MG/0.8 ML SYR SC SCH (08:08)
--- NOTE | 2017-07-09 08:47 | HOSPPROG ---
Hospitalist Progress Note Assessment/Plan: #Atrial flutter: s/p successful cardioversion: 07/07. Coreg, Aj #Cardiomyopathy: confirmed on cath, EF 35%. -Monitor overnight on BB, Vasotech. No e/o overload, so Lasix not warranted -suspect Etoh as etiology. I have had several discussions with him on cessation. #CAD: old infarcts on stress. Clean coronaries on cath. Statin, ASA, Coreg. Lipids and A1c at goal #First degree block/Wenckebach: no sxs. Cont telemetry. No e/o pauses of telemetry. No need for pacemaker #Etoh abuse: counseled on cessation #HLD: statin #Hypothyroidism: Synthroid #DVT ppx: Lovenox #Disp: warrants inpatient admission with CDM, heart block. Requires telemetry, med titration. Can DC tomorrow if tolerates medications Subjective: no SOB or dizziness Objective: Vital Signs Temp Pulse Resp BP Pulse Ox 36.6 C 63 16 96/65 L 95 07/09/17 04:00 07/09/17 04:00 07/09/17 04:00 07/09/17 04:00 07/09/17 04:00 Laboratory Results 07/09/17 03:36 07/08/17 07/09/17 07/10/17 05:59 05:59 05:59 Intake Total 650 1500 Balance 650 1500 PT 12.8 SEC (12.0-15.0) 07/06/17 11:37 INR 0.94 (0.83-1.16) 07/06/17 11:37 - Physical Exam Constitutional: no apparent distress Eyes: PERRL Ears, Nose, Mouth, Throat: moist mucous membranes, hearing normal Cardiovascular: bradycardia, No edema Respiratory: no respiratory distress Gastrointestinal: normoactive bowel sounds, soft, non-tender abdomen Genitourinary: no bladder fullness Skin: warm Musculoskeletal: full muscle strength Neurologic: AAOx3 Psychiatric: interacting appropriately ICD10 Worksheet Patient Problems: Problems Problem Status Onset Atrial flutter Acute
[2017-07-09] MEDS: ENALAPRIL MALEATE 2.5 MG TAB PO SCH (10:52)
--- NOTE | 2017-07-09 11:09 | SOAPPROG ---
SABINE Progress Note Assessment/Plan: Assessment: Plan: 07/09/17 11:09 1. Cardiomyopathy 2. Atrial flutter 3. Dyslipidemia We are going to start him on his beta-blockers and his Erik inhibitor. He has tolerated them so far. He had some 2-1 heart block and will watch that while he is here for another day to see if it looks more dangerous than Wedavidkebach. He also has first-degree heart block and some PVCs. Did not have any long pauses last night on the beta-blockers. I have reviewed with him not drinking alcohol and I think he will not do that. And I will see him in clinic in 10 days after discharge. I there is no indication for diuretic right now because he is by no means fluid overloaded. His blood pressure is already low his heart rate is low so I do not want add a diuretic to this I think is more border get him on his Erik inhibitor and beta- rigoberto. Having clinic I will see him and see if we can up titrate his medicines bed that will go from there. I am hoping that stopping alcohol this cardiomyopathy my chest is clear. All his questions have been answered I have reviewed him with the hospitalist. Our service see him tomorrow and that there is no reason to think he needs pacemaker and he is tolerating medications he will be discharged. Subjective: Intermittent with Jules questions a December he feels well today. He is eager to get out of the hospital He has no chest pain jaw pain arm pain He has no shortness of breath No palpitations or lightheadedness. He is taking his medications. His blood pressure is low on the low dose of Coreg at very low dose of vaso tech. But he did take that his headache last night is okay. He has not had a diuretic nor does he need 1. Objective: Vital Signs Temp Pulse Resp BP Pulse Ox 36.6 C 55 L 18 92/53 L 93 07/09/17 08:00 07/09/17 08:00 07/09/17 08:00 07/09/17 08:00 07/09/17 08:00 Laboratory Results 07/09/17 03:36 07/08/17 07/09/17 07/10/17 05:59 05:59 05:59 Intake Total 650 1500 Balance 650 1500 PT 12.8 SEC (12.0-15.0) 07/06/17 11:37 INR 0.94 (0.83-1.16) 07/06/17 11:37 Selected Entries 07/08/17 07/09/17 07/09/17 20:53 00:00 00:20 Heart Rate 58 L 57 L Blood Pressure 105/68 100/60 Cardiac Rhythm Sinus Bradycardia 1st Degree Heart Block 07/09/17 07/09/17 04:00 08:00 Heart Rate 63 55 L Blood Pressure 96/65 L 92/53 L Cardiac Rhythm Laboratory Tests 07/06/17 07/06/17 07/08/17 11:37 11:37 03:24 WBC 6.39 Hct 52.5 H Plt Count 238 Sodium Potassium Chloride Carbon Dioxide Anion Gap BUN Creatinine Estimated GFR Glucose Triglycerides 93 Cholesterol 148 Cholesterol Risk Factr 0.6 LDL Cholesterol, Calc 90 LDL Risk Factor 0.8 VLDL Cholesterol 18 Non-HDL Cholesterol 108 HDL Cholesterol 40 TSH 1.500 Free T4 1.55 07/09/17 03:36 WBC Hct Plt Count Sodium 141 Potassium 4.5 Chloride 108 Carbon Dioxide 26 Anion Gap 7 L BUN 30 H Creatinine 1.2 Estimated GFR 59 Glucose 85 Triglycerides Cholesterol Cholesterol Risk Factr LDL Cholesterol, Calc LDL Risk Factor VLDL Cholesterol Non-HDL Cholesterol HDL Cholesterol TSH Free T4 Physical Exam - Physical Exam General Appearance: no apparent distress Neck: non-tender, supple Respiratory: rhonchi Cardiac/Chest: regular rate, rhythm, systolic murmur, No edema, No tachycardia Abdomen: non-tender, soft, No organomegaly Skin: warm/dry, No pallor Neuro/Psych: alert, normal mood/affect ICD10 Worksheet Patient Problems: Problems Problem Status Onset Atrial flutter Acute
--- NOTE | 2017-07-09 16:04 | ASMTCMCOM ---
CM Note CM Note Notes: 71 year old male admitted for SOB, Aflutter. Has a hx of Hypothyroid, HLD, ETOH. Had a cardiac work-up. Patient may need an ICD. Encouraged to decrease ETOH consumption. May not have discharge needs. Date Signed: 07/09/2017 04:04 PM Electronically Signed By:Johnna Virgen LCSW
[2017-07-09] MEDS: ATORVASTATIN CALCIUM 20 MG TAB PO SCH (18:31)
[2017-07-09] MEDS ORDERED: ENALAPRIL MALEATE 2.5 MG TAB PO SCH (21:00)
[2017-07-09] MEDS: APIXABAN 5 MG TAB PO SCH (21:35)
[2017-07-10 04:21] LABS: ANION GAP 9 mEq/L (8-16); CARBON DIOXIDE 23 mEq/l (22-31); CHLORIDE 109 mEq/L (97-110); CREATININE 1.1 mg/dL (0.7-1.3); GLOMERULAR FILTRATION RATE > 60; GLUCOSE 93 mg/dL (70-100); POTASSIUM 4.4 mEq/L (3.5-5.2); SODIUM 141 mEq/L (134-144)
[2017-07-10] MEDS: MULTIVITAMINS 1 EACH TAB PO SCH (08:54)
[2017-07-10] MEDS: LEVOTHYROXINE 100 MCG TAB PO SCH (08:54)
[2017-07-10] MEDS: APIXABAN 5 MG TAB PO SCH (08:55)
[2017-07-10 10:54] VITALS: BP 90/53; PULSE 50; RESP 15; TEMP 97.6; O2SAT 99
--- NOTE | 2017-07-10 11:07 | PDCARPN ---
Cardiology Progress Note Chief Complaint: Chest tightness with nausea Assessment/Plan: Assessment: Patient is a 71 y/o male with history of hypothyroidism and HTN, who presented to [facility] ER with complaints of chest pains/pressure and nausea. Work up in the ER with notable arrhythmia (atrial flutter) with unknown duration. Cardiac biomarker was not elevated, but BNP was. Given the arrhythmia appreciated, BARTOLOME with possible cardioversion was arranged. No thrombus was noted, and cardioversion from atrial flutter to normal sinus rhythm was performed. Stress testing was also performed to ensure this 71 y/o male with HTN did not have underlying CAD. Stress testing with what appeared to be an inferior fixed defect, and some decrease in left ventricular function was noted. No reversibility was noted. With the "new" finding of inferior infarction and some reduction in LVEF, the patient was taken to the cardiac laboratory clerk. No CAD was identified, but continued suppression of the LVEF was noted (35%). Uncertain etiology for this suppression - query ETOH use/abuse as well as uncertain duration of atrial flutter. Since the cardioversion, the patient has maintained normal sinus rhythm, but there have been a few bouts of second degree AVB (type I). No symptoms have been noted with these findings. No prior history of syncope or dizziness. At present, no chest pains or pressure. Patient is feeling back to normal (and this is better than he has been feeling for some time). Pacer had been mentioned, but the arrhythmias noted to date to not warrant this procedure. Plan: (1) Would maintain anticoagulation on NOAC Eliquis (5 mg PO twice per day) for both post cardioversion CVA prophylaxis as well as the asymptomatic presentation to the ER with atrial flutter (2) Vasotec and Coreg should continue for HTN and notable CMP (of uncertain etiology) (3) Statins for HLP should continue with annual assessment of cholesterol and LFTs (4) Continue medical therapy for hypothyroidism and have annual assessment of levels (given this could also precipitate arrhythmias such as atrial flutter) (5) Strong recommendations for reduction/cessation of alcohol use (6) Would arrange for patient to have a 30 day event monitor (7) Patient should be seen by cardiology in the outpatient setting - would be efficient to see EP post event monitor given the notable arrhythmia appreciated (8) Would continue with regular and routine exercise Subjective: No cardiovascular complaints at present Reviewed/Discussed With: hospitalist, multidisciplinary team Objective: Vital Signs (8 Hrs) Temp Pulse Resp BP Pulse Ox 07/10/17 10:52 36.4 C 50 L 15 90/53 L 99 07/10/17 08:00 36.5 C 60 17 105/63 94 07/10/17 03:22 36.4 C 51 L 17 102/60 91 L Intake/Output (24 Hrs) 07/09/17 07/10/17 07/11/17 05:59 05:59 05:59 Intake Total 1500 2220 Balance 1500 2220 Intake: Oral (ml) 500 2220 IV Infused (ml) 1000 Ns 1,000 ml @ 150 mls/hr 1000 IV CONT LUIS M Rx#: [id number] Other: Intake Quantity Yes Sufficient Number of Voids Toilet 1 2 Result Diagrams: 07/06/17 11:37 07/10/17 03:22 Cardiac Labs: no troponin elevation mild BNP elevation EKG: sinus rhythm/sinus bradycardia with PVCs Telemetry: Sinus bradycardia Echocardiogram: 07/06/17: LVEF of 45-50% - Physical Exam Constitutional: WDWN, healthy appearing, no apparent distress Eyes: PERRL, EOMI Ears, Nose, Mouth, Throat: moist mucous membranes Cardiovascular: regular rate and rhythm, no murmurs, no rubs, no gallops, pulses symmetric bilat, No jugular vein distention Peripheral Pulses: 2+: dorsalis-pedis (R), dorsalis-pedis (L) Respiratory: clear to auscultate bilat, no crackles, no wheezes Gastrointestinal: normoactive bowel sounds Skin: no rashes, warm, no edema Musculoskeletal: no muscular tenderness Neurologic: AAOx3, CN II-XII grossly intact Psychiatric: cooperative, interactive, following commands ICD10 Worksheet Patient Problems: Problems Problem Status Onset Atrial flutter Acute
[2017-07-10] MEDS: CARVEDILOL 3.125 MG TAB PO SCH (13:03)
--- NOTE | 2017-07-10 15:02 | GDS ---
[f rep st] DISCHARGE SUMMARY DISCHARGE DIAGNOSES: 1. History of atrial flutter, status post successful cardioversion 07/07. 2. 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 3. Coronary artery disease. 4. First degree block, Wenckebach. 5. Alcohol abuse. 6. Hyperlipidemia. 7. Hypothyroidism. PROCEDURES: Cardioversion successful in 07/07/2017. Cardiac cath 07/08/2017, normal coronary arteri es. Cardiac cardiomyopathy with LV global systolic function, EF of 35%. HISTORY OF PRESENT ILLNESS: A 71-year-old male with history of hypothyroidism, hyperlipidemia, tobac co abuse, and alcohol dependence, presenting with a racing heart and shortness of breath. He really notices symptoms in April after he started skiing. [place] and felt very nauseated and winded to the point where he had to bend over to catch his breath. He did a couple more runs and had similar symptoms. He now feels his heart racing daily, even at rest. He e specially notices it in bed when he is lying on his side. Will occasionally have chest tightness, bu t no overt pain. That tightness is not associated with any diaphoresis, radiation, or numbness. Den ies any dizziness or lightheadedness. HOSPITAL COURSE BY PROBLEM: 1. Atrial flutter. Suspect this is driven by excessive alcohol use. There was no evidence of ische selin on EKG. Negative troponin. Underwent cardiac catheterization that showed normal coronaries. TS H was normal. He underwent a successful cardioversion 07/[address] Peter. He will continue Eliquis and is on low-dose Coreg. A 30 day Holter monitor will be arranged by Cardiology. 2. Compensated cardiomyopathy: Cath showed EF of 35%. Coronaries were clean. Suspect this is seco ndary to his alcohol. He was advised on alcohol cessation. He tolerated initiation of low-dose Vaso darryl and Coreg. He tolerated Coreg and Vasotec without issue. No evidence of volume overload, so [place] is not needed. He will follow up with Cardiology. 3. Hyperlipidemia: Statin. 4. Mild TIESHA. This improved with IV fluids. 5. Alcohol use. He drinks daily. He was counseled multiple times by myself and Cardiology. He had no evidence of withdrawal during the stay. DISPOSITION: Patient is stable for discharge. NEW MEDICATIONS: 1. Vasotec 2.5 mg q.h.s. 2. Coreg 3.125 mg b.i.d. 3. Eliquis 5 mg twice daily. PHYSICAL EXAMINATION: VITAL SIGNS: Temperature 36.4, blood pressure 90/53, heart rate in the 50s, r espirations 15, 99% on room air. GENERAL: Well appearing, sitting up in a chair in no acute distress . HEENT: PERRLA. EOMI. Oropharynx clear. CV: Bradycardic, regular. No murmurs, gallops, rubs. N o edema. LUNGS: Clear. No crackles or wheezing. ABDOMEN: Soft, nontender, nondistended. Positiv e bowel sounds. : No Peters. MUSCULOSKELETAL: 5/5 upper and lower extremities. NEUROLOGIC: Crania l nerves 2-12 intact. PSYCHIATRIC: Alert and oriented x3. FOLLOWUP: 1. Cardiology. 2. Primary care physician. 3. Alcohol cessation. /[id number]/MODL
--- NOTE | 2017-07-10 16:08 | ASDISCHSUM ---
Discharge Information Plan Status:Home with No Needs Medically Cleared to Leave:07/09/2017 Discharge Date:07/10/2017 01:42 PM CM D/C Disposition:Home, Routine, Self-Care ADT D/C Disposition:Home, Routine, Self-Care Projected Discharge Date:07/10/2017 01:42 PM Transportation at D/C:Friend Discharge Delay Reason: Follow-Up Date:07/10/2017 01:42 PM Discharge Slot: Final Diagnosis:SOB, Aflutter Placement Information Patient Contact Information Contact Name:ADENIKEKIRAN Relationship: Address:[facility] [address] City:[place] Alternate Phone: State/Zip Code:[place] [address] Email: Financial Information Financial Class: Primary Plan Desc:MEDICARE INPATIENT Primary Plan Number:[id number] Secondary Plan Desc: Secondary Plan Number: Assessment Information LACE LACE Acuity / Level of Care Answers: Was the patient admitted to hospital via the emergency department? Yes: Emergency dept visits in Answers: 1 last 6 months Score: 4 Date Signed: 07/06/2017 03:25 PM Electronically Signed By:Maria T Perez RN [facility] CM Progress Note CM Note CM Note Notes: 71 year old male admitted for SOB, Aflutter. Has a hx of Hypothyroid, HLD, ETOH. Had a cardiac work-up. Patient may need an ICD. Encouraged to decrease ETOH consumption. May not have discharge needs. Date Signed: 07/09/2017 04:04 PM Electronically Signed By:Johnna Virgen LCSW Intervention Information Intervention Type:*VILLAFUERTE-Signed Date of Service:07/07/2017 09:15 AM Patient Type:Observation Staff Member:Spring Solorio Hours: Discipline: Severity: Comment:
== END 2017-07-10 13:42 | disposition home or self-care (01) | DRG 287 ==
LOC: F2W 15:39 → OBSVTOIN 07-07 17:14
PROVIDERS: ADMIT Internal Medicine; ATTEND Internal Medicine
PROC: B245ZZ4 Ultrasonography of Left Heart, Transesophageal (ICD-10-PCS; 2017-07-07)
PROC: 5A2204Z Restoration of Cardiac Rhythm, Single (ICD-10-PCS; 2017-07-07)
PROC: B2151ZZ Fluoroscopy of Left Heart using Low Osmolar Contrast (ICD-10-PCS; principal; 2017-07-08)
PROC: B2111ZZ Fluoroscopy of Multiple Coronary Arteries using Low Osmolar Contrast (ICD-10-PCS; principal; 2017-07-08)
PROC: 4A023N7 Measurement of Cardiac Sampling and Pressure, Left Heart, Percutaneous Approach (ICD-10-PCS; principal; 2017-07-08)
DX: I42.6 Alcoholic cardiomyopathy (principal); I48.4 Atypical atrial flutter; I44.1 Atrioventricular block, second degree; F10.10 Alcohol abuse, uncomplicated; N17.9 Acute kidney failure, unspecified; E86.1 Hypovolemia; E03.9 Hypothyroidism, unspecified; E78.5 Hyperlipidemia, unspecified; J43.9 Emphysema, unspecified
CPT/HCPCS: A9500; G0378; J0461; J1644; J1650; J2250; J2704; J2785; J3010; Q9967

== ENCOUNTER → 2017-10-13 | Outpatient (CLI) | payer OTHER | LOC: BHFA 10:45 | PROVIDERS: ATTEND Internal Medicine Cardiovascular Disease | DX: I48.92 Unspecified atrial flutter (principal) ==

== ENCOUNTER → 2018-04-10 | Outpatient (CLI) | payer OTHER | LOC: BMCIMAGING 10:52 | PROVIDERS: ATTEND Internal Medicine | DX: M77.32 Calcaneal spur, left foot (principal) ==

== ENCOUNTER → 2018-04-19 | Outpatient (CLI) | payer OTHER | LOC: BMCIMAGING 09:26 | PROVIDERS: ATTEND Orthopaedic Surgery Hand Surgery | DX: M25.512 Pain in left shoulder (principal) ==